=== PATIENT | female | born 1950 | race African-American/Black ===

== ENCOUNTER → 2017-09-11 | Outpatient (CLI) | payer MEDICARE, MEDICAID ==
[~2017-09-11] MED LIST: ATOR20TA65 PO; BENA1TAB19 PO; BUDE6HFA INH; LEVO75TA7 PO; METO5TAB2 PO; TRAM50TA3 PO; ZOLP5TAB8 PO
== END | disposition home or self-care (01) ==
LOC: MAMMO 11:00
PROVIDERS: ATTEND Specialist
DX: Z12.31 Encounter for screening mammogram for malignant neoplasm of breast (principal)
CPT/HCPCS: 77067